=== PATIENT | female | born 2000 | race Caucasian/White ===

== ENCOUNTER 2021-01-14 15:35 | Emergency (ER) | payer OTHER ==
[2021-01-14 15:43] VITALS: TEMP 97; BMI 22.8
[2021-01-14] MEDS ORDERED: SODIUM CHLORIDE 1,000 ML IV STA (16:49)
[2021-01-14 17:14] LABS: BASO % 0.6 % (0-2.0); EOS % 0.6 % (0-4.5); HEMATOCRIT 37.4 % (32.4-45.2); HEMOGLOBIN 12.6 GM/dL (10.7-15.3); MCH 28.3 pg (25.7-33.7); MCHC 33.6 g/dl (32.0-36.0); MEAN CELL VOLUME 84.3 fl (80-96); MEAN PLT VOLUME 8.6 fl (7.5-11.1); MONO % 5.2 % (3.8-10.2); NEUT % 69.6 % (42.8-82.8); PLATELET COUNT 231 10^3/uL (134-434); RBC 4.44 M/mm3 (3.60-5.2); RDW 14.8 % (11.6-15.6); WHITE BLOOD COUNT 9.8 K/mm3 (4.0-10.0)
[2021-01-14 17:23] LABS: INR 1.03 (0.83-1.09); PROTHROMBIN TIME (PATIENT) 12.4 SEC (9.7-13.0)
[2021-01-14 17:29] LABS: CALCIUM 9.1 mg/dL (8.5-10.1)
[2021-01-14 17:30] LABS: ALBUMIN 3.8 g/dl (3.4-5.0); BLOOD UREA NITROGEN 7.4 mg/dL (7-18)
[2021-01-14 17:33] LABS: CREATININE 0.7 mg/dL (0.55-1.3)
[2021-01-14 17:34] LABS: BILIRUBIN,TOTAL 0.3 mg/dL (0.2-1); TOT PROT 7.3 g/dl (6.4-8.2)
[2021-01-14 17:36] LABS: EPI CELLS 25 /uL (0-25.1); HYALINE CASTS 2 /uL (0-3.1); URINE APPEARANCE CLEAR; URINE BACTERIA 109 /uL (0-1359); URINE BILIRUBIN NEGATIVE (NEGATIVE); URINE COLOR YELLOW; URINE GLUCOSE (UA) NEGATIVE (NEGATIVE); URINE KETONE TRACE (NEGATIVE); URINE LEUK ESTERASE TRACE (NEGATIVE); URINE NITRITE NEGATIVE (NEGATIVE); URINE PROTEIN NEGATIVE (NEGATIVE); URINE RBC 250 /uL (0-23.9); URINE WBC 31 /uL (0-25.8)
[2021-01-14] MEDS ORDERED: METHYLERGONOVINE MALEATE 0.2 MG/1 ML AMP IM ONE (19:19)
[2021-01-14] MEDS ORDERED: MEPERIDINE HCL 25 MG/ML VIAL IM ONE (19:20)
[2021-01-14] MEDS ORDERED: OXYTOCIN 20 UNITS in 0.9% NS 20 UNIT/1,000 ML INFUS.BAG IV SCH (19:30)
[2021-01-14] MEDS ORDERED: OXYTOCIN 10 UNITS/ML VIAL ONE (20:25)
[2021-01-14] MEDS ORDERED: MEPERIDINE HCL 25 MG/ML VIAL ONE (20:41)
[2021-01-14] MEDS ORDERED: SODIUM CHLORIDE 0.9% 500 ML INFUS.BAG IV ONE (21:53)
[2021-01-14 22:12] VITALS: PULSE 96
[2021-01-15 00:27] VITALS: BP 104/68
== END 2021-01-15 01:09 | disposition home or self-care (01) ==
LOC: JER 15:35
PROC: 3E033GC Introduction of Other Therapeutic Substance into Peripheral Vein, Percutaneous Approach (ICD-10-PCS; principal; 2021-01-14)
PROC: 3E023GC Introduction of Other Therapeutic Substance into Muscle, Percutaneous Approach (ICD-10-PCS; principal; 2021-01-14)
DX: O03.9 Complete or unspecified spontaneous abortion without complication (principal); Z3A.01 Less than 8 weeks gestation of pregnancy
CPT/HCPCS: 36415; 76817-TC; 80053; 81003; 84702; 84703; 85025; 85610; 86850; 86900; 86901; 87086; 99284-25

== ENCOUNTER 2021-03-25 02:30 | Emergency (ER) | payer SELFPAY ==
[2021-03-25 03:00] VITALS: BMI 22.7
[2021-03-25 04:21] LABS: BASO % 0.4 % (0-2.0); EOS % 0.9 % (0-4.5); HEMOGLOBIN 11.9 GM/dL (10.7-15.3); LYMPH % 39.7 % (8-40); MCH 27.6 pg (25.7-33.7); MCHC 33.1 g/dl (32.0-36.0); MEAN CELL VOLUME 83.4 fl (80-96); MEAN PLT VOLUME 8.6 fl (7.5-11.1); MONO % 6.1 % (3.8-10.2); NEUT % 52.9 % (42.8-82.8); PLATELET COUNT 250 10^3/uL (134-434); RBC 4.31 M/mm3 (3.60-5.2); RDW 14.5 % (11.6-15.6)
[2021-03-25 04:42] LABS: CALCIUM 9.2 mg/dL (8.5-10.1)
[2021-03-25 04:43] LABS: ALBUMIN 3.7 g/dl (3.4-5.0); BLOOD UREA NITROGEN 12.8 mg/dL (7-18)
[2021-03-25 04:46] LABS: CREATININE 0.6 mg/dL (0.55-1.3)
[2021-03-25 04:47] LABS: BILIRUBIN,TOTAL 0.2 mg/dL (0.2-1); TOT PROT 7.5 g/dl (6.4-8.2)
[2021-03-25 05:04] LABS: EPI CELLS 7 /uL (0-25.1); HYALINE CASTS 1 /uL (0-3.1); PH,URINE 5.5 (5.0-8.0); URINE APPEARANCE CLEAR; URINE BACTERIA 14 /uL (0-1359); URINE BILIRUBIN NEGATIVE (NEGATIVE); URINE COLOR YELLOW; URINE GLUCOSE (UA) NEGATIVE (NEGATIVE); URINE KETONE NEGATIVE (NEGATIVE); URINE LEUK ESTERASE TRACE (NEGATIVE); URINE NITRITE NEGATIVE (NEGATIVE); URINE PROTEIN NEGATIVE (NEGATIVE); URINE RBC 12 /uL (0-23.9); URINE UROBILINOGEN 0.2 mg/dL (0.2-1.0); URINE WBC 12 /uL (0-25.8)
[2021-03-25 10:08] VITALS: BP 107/56; PULSE 89; TEMP 98.6
== END 2021-03-25 12:03 | disposition home or self-care (01) ==
LOC: JER 02:30
DX: N93.9 Abnormal uterine and vaginal bleeding, unspecified (principal)
CPT/HCPCS: 36415; 71046-TC-FY; 76817-TC; 80053; 81003; 84702; 85025; 86850; 86900; 86901; 87040; 87086; 87491; 87591; 87661; 99285-25; C9803; U0003; U0005

== ENCOUNTER 2021-04-15 08:18 | Emergency (ER) | payer OTHER ==
[2021-04-15 08:33] VITALS: BMI 23.1
[2021-04-15] MEDS ORDERED: METOCLOPRAMIDE HCL INJECTION 10 MG/2 ML VIAL IVPUSH ONE (09:01)
[2021-04-15] MEDS ORDERED: ACETAMINOPHEN 500 MG TABLET (FP) PO ONE (09:01)
[2021-04-15] MEDS ORDERED: SODIUM CHLORIDE 1,000 ML IV STA (09:04)
[2021-04-15] MEDS ORDERED: ACETAMINOPHEN INJECTION 100 ML IVPB ONE (09:06)
[2021-04-15] MEDS ORDERED: METOCLOPRAMIDE HCL INJECTION 10 MG/2 ML VIAL ONE (09:06)
[2021-04-15 09:12] LABS: BASO % 0.2 % (0-2.0); EOS % 0.2 % (0-4.5); HEMATOCRIT 32.8 % (32.4-45.2); HEMOGLOBIN 11.2 GM/dL (10.7-15.3); LYMPH % 18.7 % (8-40); MCH 28.8 pg (25.7-33.7); MCHC 34.2 g/dl (32.0-36.0); MEAN CELL VOLUME 84.1 fl (80-96); MEAN PLT VOLUME 8.7 fl (7.5-11.1); MONO % 4.6 % (3.8-10.2); NEUT % 76.3 % (42.8-82.8); PLATELET COUNT 224 10^3/uL (134-434); RDW 14.6 % (11.6-15.6); WHITE BLOOD COUNT 9.2 K/mm3 (4.0-10.0)
[2021-04-15 09:22] LABS: INR 1.02 (0.83-1.09); PROTHROMBIN TIME (PATIENT) 11.4 SEC (9.7-13.0)
[2021-04-15 09:24] LABS: ACTIVATED PTT 23.7 SECONDS (25.2-36.5)
[2021-04-15 09:30] LABS: CALCIUM 8.7 mg/dL (8.5-10.1)
[2021-04-15 09:31] LABS: ALBUMIN 3.3 g/dl (3.4-5.0); BLOOD UREA NITROGEN 11.3 mg/dL (7-18)
[2021-04-15 09:34] LABS: CREATININE 0.7 mg/dL (0.55-1.3)
[2021-04-15 09:36] LABS: BILIRUBIN,TOTAL 0.2 mg/dL (0.2-1); TOT PROT 6.7 g/dl (6.4-8.2)
[2021-04-15] MEDS ORDERED: ONDANSETRON 4 MG/2 ML VIAL IVPUSH ONE (09:48)
[2021-04-15] MEDS ORDERED: ACETAMINOPHEN 325 MG TABLET (FP) ONE (14:00)
[2021-04-15] MEDS ORDERED: DEXTROSE 5%-0.45% SALINE 1,000 ML IV SCH (14:00)
[2021-04-15] MEDS ORDERED: ONDANSETRON 4 MG/2 ML VIAL ONE (14:00)
[2021-04-15 14:19] LABS: EPI CELLS >36 /uL (0-25.1); HYALINE CASTS 2 /uL (0-3.1); URINE APPEARANCE CLEAR; URINE BACTERIA 130 /uL (0-1359); URINE BILIRUBIN NEGATIVE (NEGATIVE); URINE COLOR YELLOW; URINE GLUCOSE (UA) NEGATIVE (NEGATIVE); URINE KETONE TRACE (NEGATIVE); URINE LEUK ESTERASE NEGATIVE (NEGATIVE); URINE NITRITE NEGATIVE (NEGATIVE); URINE PROTEIN NEGATIVE (NEGATIVE); URINE RBC 545 /uL (0-23.9); URINE UROBILINOGEN 0.2 mg/dL (0.2-1.0); URINE WBC 27 /uL (0-25.8)
[2021-04-15] MEDS ORDERED: CEPHALEXIN MONOHYDRATE 500 MG CAPSULE (UD) PO ONE (15:24)
[2021-04-15] MEDS ORDERED: CEPHALEXIN MONOHYDRATE 500 MG CAPSULE (UD) ONE (16:30)
[2021-04-15 17:19] VITALS: BP 111/67; PULSE 74; TEMP 97.8
== END 2021-04-15 16:58 | disposition home or self-care (01) ==
LOC: JER 08:18
PROC: 3E033GC Introduction of Other Therapeutic Substance into Peripheral Vein, Percutaneous Approach (ICD-10-PCS; principal; 2021-04-15)
DX: O26.891 Other specified pregnancy related conditions, first trimester (principal); N13.30 Unspecified hydronephrosis; O21.9 Vomiting of pregnancy, unspecified; Z3A.01 Less than 8 weeks gestation of pregnancy
CPT/HCPCS: 36415; 76775-TC; 76817; 80053; 81003; 85025; 85610; 85730; 86850; 86900; 86901; 87077; 87086; 96361; 96374; 96375; 99284-25

== ENCOUNTER 2021-11-22 21:45 | Inpatient (IN) | payer OTHER ==
[2021-11-22] MEDS ORDERED: PROMETHAZINE HCL 25 MG/1 ML VIAL IVPUSH ONE (22:34)
[2021-11-22] MEDS ORDERED: BUTORPHANOL TARTRATE 2 MG/ML VIAL IVPUSH ONE (22:34)
[2021-11-22] MEDS ORDERED: DINOPROSTONE 10 MG VAGINAL SUPPOSITORY VG ONE (22:35)
[2021-11-22] MEDS ORDERED: AMPICILLIN - 2 GM in SODIUM CHLORIDE 100 ML IVPB ONE (23:28)
[2021-11-22] MEDS: DEXTROSE 5%-LACTATED RINGERS 1,000 ML IV SCH (23:30)
[2021-11-23 00:35] LABS: BASO % 0.3 % (0-2.0); EOS % 0.4 % (0-4.5); MCH 27.6 pg (25.7-33.7); MCHC 33.3 g/dl (32.0-36.0); MEAN CELL VOLUME 83.1 fl (80-96); MEAN PLT VOLUME 8.6 fl (7.5-11.1); NEUT % 63.3 % (42.8-82.8); PLATELET COUNT 198 10^3/uL (134-434); RBC 3.61 M/mm3 (3.60-5.2); RDW 16.3 % (11.6-15.6); WHITE BLOOD COUNT 7.6 K/mm3 (4.0-10.0)
[2021-11-23 00:43] LABS: INR 0.91 (0.83-1.09); PROTHROMBIN TIME (PATIENT) 10.4 SEC (9.7-13.0)
[2021-11-23 00:46] LABS: ACTIVATED PTT 24.2 SECONDS (25.2-36.5)
[2021-11-23 00:54] VITALS: BMI 28.1
[2021-11-23 00:58] LABS: CALCIUM 8.3 mg/dL (8.5-10.1)
[2021-11-23 01:02] LABS: CREATININE 0.5 mg/dL (0.55-1.3)
[2021-11-23] MEDS ORDERED: AMPICILLIN - 1 GM in SODIUM CHLORIDE 100 ML IVPB SCH (04:00)
[2021-11-23] MEDS: DEXTROSE 5%-LACTATED RINGERS 1,000 ML IV SCH (06:15)
[2021-11-23] MEDS ORDERED: AMPICILLIN SODIUM 2 GM VIAL ONE (07:23)
[2021-11-23] MEDS ORDERED: AMPICILLIN - 2 GM in SODIUM CHLORIDE 100 ML IVPB ONE (07:30)
[2021-11-23] MEDS ORDERED: FENTANYL/BUPIVACAINE/NS/PF - PCEA - 50 ML DISP.SYRIN EP ONE ×3 (08:11→14:06)
[2021-11-23] MEDS ORDERED: ELECTROLYTE-148 SOLN 1,000 ML IV SCH (08:45)
[2021-11-23] MEDS ORDERED: FENTANYL/BUPIVACAINE/NS/PF - PCEA - 50 ML DISP.SYRIN EP SCH (09:15)
[2021-11-23] MEDS ORDERED: AMPICILLIN SODIUM 1 GM VIAL ONE (11:29)
[2021-11-23] MEDS: AMPICILLIN - 1 GM in SODIUM CHLORIDE 100 ML IVPB SCH ×3 (11:30→20:45)
[2021-11-23] MEDS ORDERED: OXYTOCIN 30 UNITS in 0.9% NS 30 UNIT/500 ML INFUS.BAG IVPB SCH (16:00)
[2021-11-23] MEDS ORDERED: OXYTOCIN 30 UNITS in 0.9% NS 30 UNIT/500 ML INFUS.BAG IVPB ONE (16:00)
[2021-11-23] MEDS ORDERED: OXYTOCIN 20 UNITS in 0.9% NS 20 UNIT/1,000 ML INFUS.BAG IV ONE (17:06)
[2021-11-23] MEDS ORDERED: BENZOCAINE 28 GM HEMORRHOIDAL OINTMENT TP PRN (17:32)
[2021-11-23] MEDS ORDERED: WITCH HAZEL 50% (TUCKS) 40 PAD/JAR PAD TP PRN (17:32)
[2021-11-23] MEDS ORDERED: ACETAMINOPHEN 325 MG TABLET (FP) PO PRN (17:32)
[2021-11-23] MEDS ORDERED: METHYLERGONOVINE MALEATE 0.2 MG/1 ML AMP IM PRN (17:32)
[2021-11-23] MEDS ORDERED: BENZOCAINE 20% 57 GM BOTTLE TP PRN (17:32)
[2021-11-23] MEDS ORDERED: BISACODYL 10 MG SUPP.RECT RC PRN (17:32)
[2021-11-23] MEDS ORDERED: OXYTOCIN 20 UNITS in 0.9% NS 20 UNIT/1,000 ML INFUS.BAG IV SCH (17:45)
[2021-11-23] MEDS ORDERED: IBUPROFEN 600 MG TABLET (FP) PO ONE (19:18)
[2021-11-23] MEDS: IBUPROFEN 600 MG TABLET (FP) PO PRN ×2 (19:27→23:51)
[2021-11-24 07:23] LABS: BASO % 0.3 % (0-2.0); EOS % 0.9 % (0-4.5); HEMATOCRIT 30.3 % (32.4-45.2); MCH 27.6 pg (25.7-33.7); MEAN CELL VOLUME 83.6 fl (80-96); MEAN PLT VOLUME 8.5 fl (7.5-11.1); MONO % 6.6 % (3.8-10.2); NEUT % 73.2 % (42.8-82.8); PLATELET COUNT 162 10^3/uL (134-434); RBC 3.62 M/mm3 (3.60-5.2); RDW 15.8 % (11.6-15.6); WHITE BLOOD COUNT 10.1 K/mm3 (4.0-10.0)
[2021-11-24] MEDS: oxyCODONE HCL 5 MG TABLET PO PRN ×3 (10:23→22:08)
[2021-11-24] MEDS: FERROUS SO4 325 MG TABLET (FP) PO SCH ×2 (14:57→18:20)
[2021-11-24] MEDS: DOCUSATE SODIUM 100 MG CAPSULE (FP) PO PRN (19:28)
[2021-11-24] MEDS ORDERED: SENNOSIDES/DOCUSATE COMBO (SENNA PLUS) TABLET (UD) PO PRN (22:00)
[2021-11-25] MEDS: oxyCODONE HCL 5 MG TABLET PO PRN (05:47)
[2021-11-25] MEDS: DOCUSATE SODIUM 100 MG CAPSULE (FP) PO PRN (09:35)
[2021-11-25] MEDS: FERROUS SO4 325 MG TABLET (FP) PO SCH (09:35)
[2021-11-25] MEDS: IBUPROFEN 600 MG TABLET (FP) PO PRN (09:39)
[2021-11-25 10:09] VITALS: BP 99/70; PULSE 99; TEMP 98.7
== END 2021-11-25 12:40 | disposition home or self-care (01) | DRG 560 ==
LOC: JLDR 21:45 → UNDOADMIN 21:45 → JLDR 22:15 → J3W 11-23 20:43
PROVIDERS: ADMIT Obstetrics & Gynecology; ATTEND Obstetrics & Gynecology
PROC: 3E0P7VZ Introduction of Hormone into Female Reproductive, Via Natural or Artificial Opening (ICD-10-PCS; 2021-11-22)
PROC: 10E0XZZ Delivery of Products of Conception, External Approach (ICD-10-PCS; principal; 2021-11-24)
PROC: 10907ZC Drainage of Amniotic Fluid, Therapeutic from Products of Conception, Via Natural or Artificial Opening (ICD-10-PCS; 2021-11-24)
PROC: 3E033VJ Introduction of Other Hormone into Peripheral Vein, Percutaneous Approach (ICD-10-PCS; 2021-11-24)
DX: O80 Encounter for full-term uncomplicated delivery (principal); Z3A.39 39 weeks gestation of pregnancy; Z37.0 Single live birth
CPT/HCPCS: 36415; 59409; 80048; 85025; 85610; 85730; 86762; 86780; 86850; 86900; 86901; C9803-CS; U0003; U0005

== ENCOUNTER 2023-04-03 04:32 | Day surgery (SDC) | payer OTHER ==
[2023-04-02 09:53] VITALS: BMI 23.9
[2023-04-03] MEDS ORDERED: FENTANYL CITRATE/PF 50 MCG/ML VIAL ONE (13:59)
[2023-04-03] MEDS ORDERED: MIDAZOLAM HCL 2 MG/2 ML SINGLE DOSE VIAL ONE (14:00)
[2023-04-03] MEDS ORDERED: oxyCODONE HCL 5 MG TABLET PO PRN ×2 (14:04→14:45)
[2023-04-03] MEDS ORDERED: ONDANSETRON 4 MG/2 ML VIAL IVPUSH PRN ×2 (14:04→14:45)
[2023-04-03] MEDS ORDERED: PROMETHAZINE HCL 25 MG/1 ML VIAL IVPB PRN (14:04)
[2023-04-03] MEDS ORDERED: LACTATED RINGERS SOLUTION 1,000 ML IV SCH (14:15)
[2023-04-03] MEDS ORDERED: ceFAZolin SODIUM 1 GM VIAL IVPB ONE (14:20)
[2023-04-03] MEDS ORDERED: IBUPROFEN 800 MG/8 ML IJ IVPB PRN (14:45)
[2023-04-03] MEDS ORDERED: ELECTROLYTE-148 SOLN 1,000 ML IV SCH (14:45)
[2023-04-03] MEDS ORDERED: IBUPROFEN 600 MG TABLET (FP) PO PRN (14:45)
[2023-04-03] MEDS ORDERED: PROMETHAZINE HCL 25 MG/1 ML VIAL ONE (14:57)
[2023-04-03] MEDS ORDERED: ACETAMINOPHEN 325 MG TABLET (FP) ONE (17:11)
[2023-04-03 18:41] VITALS: RESP 18
[2023-04-03 18:45] VITALS: BP 103/57; PULSE 72; TEMP 98
== END 2023-04-03 17:57 | disposition home or self-care (01) ==
LOC: JASU-SURG 04:32
PROVIDERS: ATTEND Obstetrics & Gynecology
PROC: 10D17ZZ Extraction of Products of Conception, Retained, Via Natural or Artificial Opening (ICD-10-PCS; principal; 2023-04-03 14:00)
DX: O03.4 Incomplete spontaneous abortion without complication (principal)
CPT/HCPCS: 88305-TC

== ENCOUNTER 2023-07-03 02:28 | Emergency (ER) | payer OTHER ==
[2023-07-03 02:38] VITALS: BMI 23.5
[2023-07-03] MEDS: SODIUM CHLORIDE 0.9% 500 ML INFUS.BAG IV ONE (05:03)
[2023-07-03] MEDS: ACETAMINOPHEN 1000 MG/100 ML BAG IVPB ONE (05:04)
[2023-07-03] MEDS ORDERED: ACETAMINOPHEN INJECTION 100 ML IVPB ONE (05:11)
[2023-07-03 05:50] LABS: BASO % 0.4 % (0-2.0); EOS % 0.2 % (0-4.5); HEMATOCRIT 35.3 % (32.4-45.2); HEMOGLOBIN 11.5 GM/dL (10.7-15.3); LYMPH % 23.4 % (8-40); MCH 25.9 pg (25.7-33.7); MCHC 32.7 g/dl (32.0-36.0); MEAN CELL VOLUME 79.3 fl (80-96); MONO % 12.1 % (3.8-10.2); NEUT % 63.9 % (42.8-82.8); PLATELET COUNT 206 10^3/uL (134-434); RBC 4.45 M/mm3 (3.60-5.2); RDW 17.1 % (11.6-15.6); WHITE BLOOD COUNT 9.8 K/mm3 (4.0-10.0)
[2023-07-03 05:54] LABS: EPI CELLS >36 /uL (0-25.1); HYALINE CASTS 0 /uL (0-3.1); URINE APPEARANCE CLOUDY; URINE BACTERIA >9,000 /uL (0-1359); URINE BILIRUBIN NEGATIVE (NEGATIVE); URINE COLOR YELLOW; URINE GLUCOSE (UA) NEGATIVE (NEGATIVE); URINE KETONE 1+ (NEGATIVE); URINE LEUK ESTERASE 2+ (NEGATIVE); URINE NITRITE POSITIVE (NEGATIVE); URINE PROTEIN 1+ (NEGATIVE); URINE RBC 172 /uL (0-23.9); URINE WBC 1185 /uL (0-25.8)
[2023-07-03 06:09] LABS: POTASSIUM 3.5 mmol/L (3.5-5.1)
[2023-07-03 06:11] LABS: CALCIUM 8.4 mg/dL (8.5-10.1)
[2023-07-03 06:12] LABS: ALBUMIN 3.4 g/dl (3.4-5.0); BLOOD UREA NITROGEN 7.8 mg/dL (7-18)
[2023-07-03 06:15] LABS: CREATININE 0.7 mg/dL (0.55-1.3)
[2023-07-03 06:16] LABS: BILIRUBIN,TOTAL 0.4 mg/dL (0.2-1); TOT PROT 6.9 g/dl (6.4-8.2)
[2023-07-03 06:20] LABS: INR 1.22 (0.83-1.09); PROTHROMBIN TIME (PATIENT) 14.1 SEC (9.7-13.0)
[2023-07-03 06:23] LABS: ACTIVATED PTT 28.4 SECONDS (25.2-36.5)
[2023-07-03] MEDS: CEFTRIAXONE 1,000 MG in DEXTROSE 5%-WATER - 50 ML IVPB ONE (06:49)
[2023-07-03] MEDS ORDERED: CEFTRIAXONE 1 GM/50 ML BAG ONE (06:50)
[2023-07-03 07:13] VITALS: BP 100/53; PULSE 91; RESP 16; TEMP 98.4
== END 2023-07-03 07:17 | disposition home or self-care (01) ==
LOC: JER 02:28
PROC: 3E03329 Introduction of Other Anti-infective into Peripheral Vein, Percutaneous Approach (ICD-10-PCS; principal; 2023-07-03)
PROC: 3E033NZ Introduction of Analgesics, Hypnotics, Sedatives into Peripheral Vein, Percutaneous Approach (ICD-10-PCS; 2023-07-03)
DX: N12 Tubulo-interstitial nephritis, not specified as acute or chronic (principal); R10.31 Right lower quadrant pain; R30.9 Painful micturition, unspecified; R50.9 Fever, unspecified; R11.0 Nausea; R06.02 Shortness of breath; R30.0 Dysuria; Z20.822 Contact with and (suspected) exposure to COVID-19
CPT/HCPCS: 0241U-QW; 36415; 80053; 81003; 83605; 84703; 85025; 85610; 85730; 86850; 86900; 86901; 87040; 87086; 87186; 93005; 93010; 99284-25; J0131

== ENCOUNTER 2023-09-14 03:09 | Inpatient (IN) | payer OTHER ==
[2023-09-14 03:20] VITALS: BMI 23.8
[2023-09-14] MEDS ORDERED: ACETAMINOPHEN INJECTION 100 ML IVPB ONE (04:11)
[2023-09-14] MEDS: ACETAMINOPHEN 1000 MG/100 ML BAG IVPB ONE (04:15)
[2023-09-14 04:30] LABS: BASO % 0.2 % (0-2.0); EOS % 0.1 % (0-4.5); HEMATOCRIT 36.3 % (32.4-45.2); HEMOGLOBIN 11.7 GM/dL (10.7-15.3); LYMPH % 9.5 % (8-40); MCH 25.8 pg (25.7-33.7); MCHC 32.3 g/dl (32.0-36.0); MEAN CELL VOLUME 79.7 fl (80-96); MEAN PLT VOLUME 8.5 fl (7.5-11.1); MONO % 2.8 % (3.8-10.2); NEUT % 87.4 % (42.8-82.8); PLATELET COUNT 281 10^3/uL (134-434); RBC 4.55 M/mm3 (3.60-5.2); RDW 16.6 % (11.6-15.6); WHITE BLOOD COUNT 15.2 K/mm3 (4.0-10.0)
[2023-09-14 04:36] LABS: INR 1.03 (0.83-1.09); PROTHROMBIN TIME (PATIENT) 11.9 SEC (9.7-13.0)
[2023-09-14 04:39] LABS: ACTIVATED PTT 25.5 SECONDS (25.2-36.5)
[2023-09-14 04:51] LABS: POTASSIUM 3.6 mmol/L (3.5-5.1)
[2023-09-14 04:52] LABS: CALCIUM 9.5 mg/dL (8.5-10.1)
[2023-09-14] MEDS: SODIUM CHLORIDE 0.9% 500 ML INFUS.BAG IV ONE ×2 (04:53→07:45)
[2023-09-14 04:54] LABS: ALBUMIN 3.7 g/dl (3.4-5.0); BLOOD UREA NITROGEN 18.9 mg/dL (7-18)
[2023-09-14 04:56] LABS: CREATININE 0.8 mg/dL (0.55-1.3)
[2023-09-14 04:58] LABS: BILIRUBIN,TOTAL 0.3 mg/dL (0.2-1); TOT PROT 7.3 g/dl (6.4-8.2)
[2023-09-14] MEDS: morphine SULFATE 4 MG/ML VIAL IVPUSH ONE (05:49)
[2023-09-14] MEDS ORDERED: TAMSULOSIN HCL 0.4 MG CAP ONE (06:46)
[2023-09-14] MEDS: TAMSULOSIN HCL 0.4 MG CAP PO ONE (06:51)
[2023-09-14 08:58] LABS: URINE APPEARANCE CLEAR; URINE BILIRUBIN NEGATIVE (NEGATIVE); URINE COLOR YELLOW; URINE GLUCOSE (UA) NEGATIVE (NEGATIVE); URINE KETONE 15 mg/dl (NEGATIVE)
[2023-09-14 08:59] LABS: EPI CELLS 40.5 /uL (0-25.1); HYALINE CASTS 1.17 /uL (0-3.1); URINE BACTERIA 106.6 /uL (0-1359); URINE LEUK ESTERASE NEGATIVE (NEGATIVE); URINE NITRITE NEGATIVE (NEGATIVE); URINE PROTEIN TRACE (NEGATIVE); URINE RBC 93.2 /uL (0-23.9); URINE UROBILINOGEN 0.2 mg/dL (0.2-1.0); URINE WBC 51.5 /uL (0-25.8)
[2023-09-14] MEDS ORDERED: CEFTRIAXONE 1 GM/50 ML BAG ONE (09:45)
[2023-09-14] MEDS ORDERED: ENOXAPARIN NA (PORCINE) 40 MG/0.4 ML DISP.SYRIN SQ ONE (09:45)
[2023-09-14] MEDS: KETOROLAC TROMETHAMINE 15 MG/ML VIAL IVPUSH PRN (09:46)
[2023-09-14] MEDS: CEFTRIAXONE 1 GM in DEXTROSE 5%-WATER - 50 ML IVPB ONE (09:46)
[2023-09-14] MEDS: ENOXAPARIN NA (PORCINE) 40 MG/0.4 ML DISP.SYRIN SQ SCH (09:46)
[2023-09-14] MEDS: LACTATED RINGERS SOLUTION 1,000 ML IV SCH (09:52)
[2023-09-14] MEDS ORDERED: LORATADINE 10 MG TABLET PO ONE (15:14)
[2023-09-14] MEDS: LORATADINE 10 MG TABLET PO ONE (18:19)
[2023-09-14] MEDS: SODIUM CHLORIDE NASAL SPRAY 44 ML BOTTLE NS PRN (18:19)
[2023-09-15 09:04] LABS: HEMATOCRIT 33.5 % (32.4-45.2); HEMOGLOBIN 10.8 GM/dL (10.7-15.3); MCH 26.1 pg (25.7-33.7); MCHC 32.2 g/dl (32.0-36.0); MEAN PLT VOLUME 8.7 fl (7.5-11.1); PLATELET COUNT 234 10^3/uL (134-434); RBC 4.13 M/mm3 (3.60-5.2); RDW 16.4 % (11.6-15.6); WHITE BLOOD COUNT 6.6 K/mm3 (4.0-10.0)
[2023-09-15 09:08] LABS: INR 1.01 (0.83-1.09); PROTHROMBIN TIME (PATIENT) 11.7 SEC (9.7-13.0)
[2023-09-15 09:10] LABS: ACTIVATED PTT 25.7 SECONDS (25.2-36.5)
[2023-09-15 09:28] LABS: POTASSIUM 3.9 mmol/L (3.5-5.1)
[2023-09-15 09:32] LABS: CALCIUM 8.3 mg/dL (8.5-10.1); MAGNESIUM 1.7 mg/dL (1.8-2.4)
[2023-09-15 09:33] LABS: BLOOD UREA NITROGEN 8.6 mg/dL (7-18)
[2023-09-15 09:35] LABS: CREATININE 0.6 mg/dL (0.55-1.3); PHOSPHOROUS 3.1 mg/dL (2.5-4.9)
[2023-09-15 09:37] LABS: BILIRUBIN,TOTAL 0.5 mg/dL (0.2-1)
[2023-09-15 09:46] LABS: ALBUMIN 2.9 g/dl (3.4-5.0)
[2023-09-15] MEDS: CEFTRIAXONE 1 GM in DEXTROSE 5%-WATER - 50 ML IVPB SCH (09:49)
[2023-09-15 10:20] LABS: ANISOCYTOSIS 0; MACROCYTOSIS 0
[2023-09-15] MEDS ORDERED: LIDOCAINE HCL 2% JELLY 11 ML TP ONE (12:34)
[2023-09-15] MEDS ORDERED: PROPOFOL 20 ML ONE ×2 (12:52→12:53)
[2023-09-15] MEDS ORDERED: MIDAZOLAM HCL 2 MG/2 ML SINGLE DOSE VIAL ONE ×2 (12:52)
[2023-09-15] MEDS ORDERED: FENTANYL CITRATE/PF 50 MCG/ML VIAL ONE ×3 (12:52→14:43)
[2023-09-15] MEDS ORDERED: ACETAMINOPHEN 1000 MG/100 ML BAG IVPB PRN (12:55)
[2023-09-15] MEDS ORDERED: KETOROLAC TROMETHAMINE 15 MG/ML VIAL IVPUSH PRN (14:30)
[2023-09-15] MEDS ORDERED: LACTATED RINGERS SOLUTION 1,000 ML IV SCH (14:30)
[2023-09-15] MEDS ORDERED: SODIUM CHLORIDE NASAL SPRAY 44 ML BOTTLE NS PRN (14:30)
[2023-09-15] MEDS ORDERED: ONDANSETRON 4 MG/2 ML VIAL IVPUSH PRN (14:36)
[2023-09-15] MEDS: LACTATED RINGERS SOLUTION 1,000 ML IV SCH (18:13)
[2023-09-15] MEDS: ACETAMINOPHEN 1000 MG/100 ML BAG IVPB PRN (18:13)
[2023-09-16] MEDS: oxyCODONE HCL 5 MG TABLET PO PRN (00:23)
[2023-09-16 07:49] LABS: BASO % 0.2 % (0-2.0); EOS % 0.2 % (0-4.5); HEMATOCRIT 31.5 % (32.4-45.2); HEMOGLOBIN 10.4 GM/dL (10.7-15.3); LYMPH % 17.9 % (8-40); MCH 26.5 pg (25.7-33.7); MCHC 32.9 g/dl (32.0-36.0); MEAN CELL VOLUME 80.4 fl (80-96); MEAN PLT VOLUME 8.9 fl (7.5-11.1); MONO % 5.8 % (3.8-10.2); NEUT % 75.9 % (42.8-82.8); PLATELET COUNT 223 10^3/uL (134-434); RBC 3.92 M/mm3 (3.60-5.2); RDW 16.5 % (11.6-15.6); WHITE BLOOD COUNT 11.4 K/mm3 (4.0-10.0)
[2023-09-16 08:04] LABS: POTASSIUM 3.9 mmol/L (3.5-5.1)
[2023-09-16 08:21] LABS: CALCIUM 8.5 mg/dL (8.5-10.1)
[2023-09-16 08:22] LABS: BLOOD UREA NITROGEN 9.4 mg/dL (7-18)
[2023-09-16 08:25] LABS: CREATININE 0.6 mg/dL (0.55-1.3)
[2023-09-16] MEDS: CEFTRIAXONE 1 GM in DEXTROSE 5%-WATER - 50 ML IVPB SCH (10:20)
[2023-09-16] MEDS: ENOXAPARIN NA (PORCINE) 40 MG/0.4 ML DISP.SYRIN SQ SCH (10:20)
[2023-09-16] MEDS ORDERED: ALBUTEROL SO4 HFA INHALER IH PRN (11:04)
[2023-09-16] MEDS ORDERED: KETOROLAC TROMETHAMINE 15 MG/ML VIAL IVPUSH SCH ×2 (11:06→22:00)
[2023-09-16] MEDS ORDERED: ACETAMINOPHEN 1000 MG/100 ML BAG IVPB SCH (11:15)
[2023-09-16] MEDS: ONDANSETRON 4 MG/2 ML VIAL IVPUSH PRN (12:14)
[2023-09-16 13:29] VITALS: BP 102/61; PULSE 81; RESP 20; TEMP 98.2
[2023-09-16] MEDS: ACETAMINOPHEN 1000 MG/100 ML BAG IVPB SCH (15:22)
== END 2023-09-16 17:41 | disposition home or self-care (01) | DRG 465 ==
LOC: JER 03:09 → JERBED 06:17 → J7W 10:51
PROVIDERS: ADMIT Internal Medicine; ATTEND Internal Medicine
PROC: 0T768DZ Dilation of Right Ureter with Intraluminal Device, Via Natural or Artificial Opening Endoscopic (ICD-10-PCS; principal; 2023-09-15 14:00)
PROC: 0TF68ZZ Fragmentation in Right Ureter, Via Natural or Artificial Opening Endoscopic (ICD-10-PCS; 2023-09-15 14:00)
PROC: BT1DZZZ Fluoroscopy of Right Kidney, Ureter and Bladder (ICD-10-PCS; 2023-09-15 14:00)
DX: N13.2 Hydronephrosis with renal and ureteral calculous obstruction (principal); D72.829 Elevated white blood cell count, unspecified; J45.909 Unspecified asthma, uncomplicated
CPT/HCPCS: 0241U-QW; 36415; 74177-TC; 76000-TC-FY; 80048; 80053; 81003; 82360; 83605; 83690; 83735; 84100; 84703; 85025; 85610; 85730; 86850; 86900; 86901; 87086; 88300-TC; 93005; 93010; 94760; 99285-25; C1758; C2617; J0131

== ENCOUNTER 2024-04-07 13:40 | Emergency (ER) | payer OTHER ==
[2024-04-07 13:46] VITALS: RESP 18; BMI 23.0
[2024-04-07] MEDS ORDERED: MECLIZINE HCL 25 MG TABLET (FP) ONE (14:43)
[2024-04-07] MEDS ORDERED: ACETAMINOPHEN INJECTION 100 ML ONE (14:43)
[2024-04-07] MEDS ORDERED: ONDANSETRON 4 MG/2 ML VIAL ONE (14:44)
[2024-04-07] MEDS: ONDANSETRON 4 MG/2 ML VIAL IVPUSH ONE (15:03)
[2024-04-07] MEDS: MECLIZINE HCL 25 MG TABLET (FP) PO ONE (15:03)
[2024-04-07] MEDS: SODIUM CHLORIDE 1,000 ML IV STA (15:03)
[2024-04-07] MEDS: ACETAMINOPHEN 1000 MG/100 ML BAG IVPB ONE (15:03)
[2024-04-07 15:17] LABS: BASO % 0.5 % (0-2.0); HEMATOCRIT 39.1 % (32.4-45.2); HEMOGLOBIN 12.9 GM/dL (10.7-15.3); MCH 27.6 pg (25.7-33.7); MEAN CELL VOLUME 83.5 fl (80-96); MEAN PLT VOLUME 8.7 fl (7.5-11.1); MONO % 10.3 % (3.8-10.2); NEUT % 65.2 % (42.8-82.8); PLATELET COUNT 191 10^3/uL (134-434); RBC 4.69 M/mm3 (3.60-5.2); RDW 15.6 % (11.6-15.6); WHITE BLOOD COUNT 4.1 K/mm3 (4.0-10.0)
[2024-04-07 15:34] LABS: POTASSIUM 3.7 mmol/L (3.5-5.1)
[2024-04-07 15:37] LABS: ALBUMIN 3.7 g/dl (3.4-5.0); BLOOD UREA NITROGEN 12.6 mg/dL (7-18)
[2024-04-07 15:40] LABS: CREATININE 0.6 mg/dL (0.55-1.3)
[2024-04-07 15:41] LABS: BILIRUBIN,TOTAL 0.2 mg/dL (0.2-1); TOT PROT 7.4 g/dl (6.4-8.2)
[2024-04-07 16:30] LABS: HIV INTERPRETATION NEGATIVE (NEGATIVE)
[2024-04-07 16:42] LABS: EPI CELLS 27 /uL (0-25.1); HCG,QUALITATIVE URINE Negative; HYALINE CASTS 0 /uL (0-3.1); URINE APPEARANCE CLEAR; URINE BACTERIA 216 /uL (0-1359); URINE BILIRUBIN NEGATIVE (NEGATIVE); URINE COLOR YELLOW; URINE GLUCOSE (UA) NEGATIVE (NEGATIVE); URINE KETONE NEGATIVE (NEGATIVE); URINE LEUK ESTERASE NEGATIVE (NEGATIVE); URINE NITRITE NEGATIVE (NEGATIVE); URINE PROTEIN NEGATIVE (NEGATIVE); URINE RBC 87 /uL (0-23.9); URINE UROBILINOGEN 0.2 mg/dL (0.2-1.0); URINE WBC 9 /uL (0-25.8)
[2024-04-07] MEDS ORDERED: KETOROLAC TROMETHAMINE 30 MG/1 ML VIAL ONE (17:43)
[2024-04-07] MEDS: KETOROLAC TROMETHAMINE 30 MG/1 ML VIAL IVPUSH ONE (17:48)
[2024-04-07 18:38] VITALS: BP 93/57; PULSE 89; TEMP 98.5
== END 2024-04-07 19:28 | disposition home or self-care (01) ==
LOC: JER 13:40
PROC: 3E033NZ Introduction of Analgesics, Hypnotics, Sedatives into Peripheral Vein, Percutaneous Approach (ICD-10-PCS; principal; 2024-04-07)
PROC: 3E0333Z Introduction of Anti-inflammatory into Peripheral Vein, Percutaneous Approach (ICD-10-PCS; 2024-04-07)
PROC: 3E033GC Introduction of Other Therapeutic Substance into Peripheral Vein, Percutaneous Approach (ICD-10-PCS; 2024-04-07)
DX: R51.9 Headache, unspecified (principal); R42 Dizziness and giddiness; R11.0 Nausea
CPT/HCPCS: 36415; 70450-TC; 80053; 81003; 84703; 85025; 86803; 87086; 87389; 99284-25; J0131